=== PATIENT | male | born 2005 | race Caucasian/White ===

== ENCOUNTER 2024-07-22 19:36 | Emergency (ER) | payer OTHER, SELFPAY ==
[2024-07-22] MEDS ORDERED: Ondansetron PF 4 MG/2 ML Vial ONE (20:14)
[2024-07-22 22:57] LABS: Acetaminophen Less than 10 mcg/mL (Less than 10); Alcohol 175.2 mg/dL (Less than 10); Salicylate Less than 8.0 mg/dL (Less than 8.0)
== END 2024-07-22 23:40 | disposition home or self-care (01) ==
LOC: ERS 19:36
DX: F10.120 Alcohol abuse with intoxication, uncomplicated (principal)
CPT/HCPCS: 36415; 80307; 96361; 96374; J2405